=== PATIENT | male | born 1990 | race Caucasian/White ===

== ENCOUNTER 2017-10-15 13:54 | Inpatient (IN) | payer OTHER ==
[~2017-10-15] VITALS: Ht 175.2 cm; Wt 56.0 kg
[2017-10-15 15:13] VITALS: BP 132/77
[2017-10-15 15:52] LABS: BILIRUBIN NEGATIVE (NEGATIVE); BLOOD NEGATIVE (NEGATIVE); CLARITY CLEAR (CLEAR); COLOR YELLOW (YELLOW); GLUCOSE NEGATIVE (NEGATIVE); KETONE TRACE (NEGATIVE); LEUKO ESTERASE NEGATIVE (NEGATIVE); NITRITE NEGATIVE (NEGATIVE); PH 5.5 (5.0-9.0); SPECIFIC GRAVITY 1.025 (1.005-1.030); UROBILINOGEN 0.2 E.U./dl (0.2-1.0)
[2017-10-15 15:59] LABS: BACTERIA 1+; EPITHELIAL CELLS 0-2; MUCOUS TRACE; RBC 0-2 rbc/hpf (0-2); WBC 0-2 wbc/hpf (0-5)
[2017-10-15 16:00] VITALS: BP 120/72
[2017-10-15 16:01] LABS: URINE AMPHETAMINES < 1000 (1000ng/ml); URINE BARBITURATES < 200 (200ng/ml); URINE BENZODIAZEPINES < 200 (200ng/ml); URINE CANNABINOIDS (THC) > 50 (50ng/ml); URINE COCAINE < 300 (300ng/ml); URINE METHADONE < 300 (300ng/ml); URINE OPIATES < 300 (300ng/ml)
[2017-10-15 16:02] LABS: BASO % 0.4 % (0.0-1.0); EOS % 0.3 % (1.0-4.0); HEMATOCRIT 45.9 % (42.0-52.0); HEMOGLOBIN 16.2 g/dl (14.0-18.0); LYMPH % 15.1 % (27.0-41.0); MEAN CELL VOLUME 86.6 fl (80.0-94.0); MEAN CORPUSCULAR HGB 30.6 pg (27.0-31.0); MEAN CORPUSCULAR HGB CONC 35.3 g/dl (33.0-37.0); MEAN PLATELET VOLUME 8.5 fl (9.6-12.3); MONO # 0.3 10*3/uL (0.1-1.0); MONO % 3.7 % (3.0-9.0); NEUT # 5.4 10*3/uL (2.3-7.9); NEUT % 80.2 % (47.0-73.0); PLATELET COUNT AUTOMATED 252 10*3/uL (130-400); RED CELL DISTRI WIDTH 12.6 % (0-14.5); WHITE BLOOD COUNT 6.7 10*3/uL (4.8-10.8)
[2017-10-15 16:07] LABS: URINE PHENCYCLIDINE < 25 (25ng/ml)
[2017-10-15 16:19] LABS: ALBUMIN 4.8 gm/dl (3.1-4.5); ALKALINE PHOSPHATASE 90 U/L (45-117); BUN 14 mg/dl (7-24); CHLORIDE 102 mmol/L (98-107); CREATININE 0.89 mg/dL (0.70-1.30); POTASSIUM 4.4 mmol/L (3.5-5.1); SGOT/AST 17 IU/L (3-35); SGPT/ALT 17 U/L (12-78); SODIUM 138 mmol/L (136-145); TOTAL PROTEIN 8.9 gm/dL (6.4-8.2)
[2017-10-15 16:31] LABS: ETHYL ALCOHOL < 3.0 mg/dl (<3)
[2017-10-15 20:18] VITALS: BP 106/45
[2017-10-16 00:41] VITALS: BP 107/57
[2017-10-16 08:00] VITALS: BP 115/56
[2017-10-16 12:00] VITALS: BP 98/54
[2017-10-16 16:00] VITALS: BP 110/57
[2017-10-16 20:00] VITALS: BP 97/49
[2017-10-17 04:00] VITALS: BP 98/50
[2017-10-17 08:00] VITALS: BP 108/63
[2017-10-17 16:00] VITALS: BP 99/54
[2017-10-17 20:00] VITALS: BP 111/60
[2017-10-18] VITALS: BP 105/60
[2017-10-18 06:42] LABS: BASO # 0.1 10*3/uL (0.0-0.1); EOS # 0.2 10*3/uL (0.0-0.4); HEMATOCRIT 46.5 % (42.0-52.0); HEMOGLOBIN 15.9 g/dl (14.0-18.0); LYMPH # 2.3 10*3/uL (1.3-4.4); LYMPH % 47.3 % (27.0-41.0); MEAN CELL VOLUME 87.4 fl (80.0-94.0); MEAN CORPUSCULAR HGB 29.9 pg (27.0-31.0); MEAN CORPUSCULAR HGB CONC 34.2 g/dl (33.0-37.0); MONO # 0.3 10*3/uL (0.1-1.0); MONO % 5.1 % (3.0-9.0); NEUT # 2.1 10*3/uL (2.3-7.9); NEUT % 42.6 % (47.0-73.0); PLATELET COUNT AUTOMATED 192 10*3/uL (130-400); RED BLOOD COUNT 5.32 10*6/uL (4.50-5.90); RED CELL DISTRI WIDTH 12.5 % (0-14.5)
[2017-10-18 08:00] VITALS: BP 120/69
== END 2017-10-18 09:18 | disposition home or self-care (01) | DRG 895 ==
LOC: 5E 13:54
PROVIDERS: Internal Medicine; Registered Nurse
PROC: HZ34ZZZ Individual Counseling for Substance Abuse Treatment, Interpersonal (ICD-10-PCS; principal; 2017-10-15)
DX: F11.23 Opioid dependence with withdrawal (principal); B19.20 Unspecified viral hepatitis C without hepatic coma; F41.9 Anxiety disorder, unspecified; F32.9 Major depressive disorder, single episode, unspecified; F12.90 Cannabis use, unspecified, uncomplicated; Z72.0 Tobacco use; Z71.6 Tobacco abuse counseling

== ENCOUNTER 2018-05-04 07:55 | Inpatient (IN) | payer OTHER ==
[2018-05-04] VITALS (15 sets, daily range): BP systolic 87–119; BP diastolic 53–80
[~2018-05-04] VITALS: Ht 175.2 cm; Wt 54.0 kg
--- NOTE | ~2018-05-04 | EKG ---
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
[2018-05-04] MEDS ORDERED: BUPRENORPHIN NALOXON (08:08)
[2018-05-04 08:57] LABS: BASO % 0.5 % (0.0-1.0); EOS # 0.1 10*3/uL (0.0-0.4); HEMATOCRIT 34.1 % (42.0-52.0); HEMOGLOBIN 12.4 g/dl (14.0-18.0); LYMPH # 1.5 10*3/uL (1.3-4.4); LYMPH % 26.3 % (27.0-41.0); MEAN CELL VOLUME 84.2 fl (80.0-94.0); MEAN CORPUSCULAR HGB 30.6 pg (27.0-31.0); MEAN CORPUSCULAR HGB CONC 36.4 g/dl (33.0-37.0); MEAN PLATELET VOLUME 9.3 fl (9.6-12.3); MONO # 0.4 10*3/uL (0.1-1.0); MONO % 7.5 % (3.0-9.0); NEUT # 3.6 10*3/uL (2.3-7.9); NEUT % 63.3 % (47.0-73.0); PLATELET COUNT AUTOMATED 185 10*3/uL (130-400); RED BLOOD COUNT 4.05 10*6/uL (4.50-5.90); RED CELL DISTRI WIDTH 11.8 % (0-14.5); WHITE BLOOD COUNT 5.6 10*3/uL (4.8-10.8)
[2018-05-04 09:06] LABS: ACT PARTIAL THROMBO TIME 18.4 SECONDS (20.8-31.5); INTERNATIONAL NORM RATIO 1.1 (2.0-3.5)
[2018-05-04 09:12] LABS: ALBUMIN 3.4 gm/dl (3.1-4.5); ALKALINE PHOSPHATASE 52 U/L (45-117); BUN 13 mg/dl (7-24); CHLORIDE 109 mmol/L (98-107); CREATININE 0.95 mg/dL (0.70-1.30); LIPASE 318 U/L (73-393); SGOT/AST 13 IU/L (3-35); SGPT/ALT 15 U/L (12-78); SODIUM 141 mmol/L (136-145); TOTAL PROTEIN 6.2 gm/dL (6.4-8.2)
[2018-05-04 09:13] LABS: ETHYL ALCOHOL < 3.0 mg/dl (<3); TROPONIN I < 0.015 ng/ml (<0.045)
[2018-05-05] VITALS: BP 104/60
[2018-05-05 04:00] VITALS: BP 104/70
[2018-05-05 06:53] LABS: BILIRUBIN NEGATIVE (NEGATIVE); BLOOD NEGATIVE (NEGATIVE); CLARITY SL CLOUDY (CLEAR); COLOR YELLOW (YELLOW); GLUCOSE NEGATIVE (NEGATIVE); KETONE NEGATIVE (NEGATIVE); LEUKO ESTERASE NEGATIVE (NEGATIVE); NITRITE NEGATIVE (NEGATIVE); SPECIFIC GRAVITY >= 1.030 (1.005-1.030)
[2018-05-05 07:00] LABS: URINE AMPHETAMINES > 1000 (1000ng/ml); URINE BARBITURATES < 200 (200ng/ml); URINE BENZODIAZEPINES < 200 (200ng/ml); URINE CANNABINOIDS (THC) < 50 (50ng/ml); URINE COCAINE < 300 (300ng/ml); URINE METHADONE < 300 (300ng/ml); URINE OPIATES < 300 (300ng/ml)
[2018-05-05 07:07] LABS: BUN 17 mg/dl (7-24); CHLORIDE 104 mmol/L (98-107); CHOLESTEROL 89 mg/dL (<200); CREATININE 0.78 mg/dL (0.70-1.30); FREE T4 1.59 ng/dl (0.76-1.46); HDL CHOLESTEROL 39 mg/dl (40-60); LDL CHOLESTEROL 32 mg/dL (9-159); POTASSIUM 3.7 mmol/L (3.5-5.1); SODIUM 140 mmol/L (136-145); TRIGLYCERIDES 91 mg/dl (<150); VLDL CHOLESTEROL 18 mg/dL (6-40)
[2018-05-05 07:07] LABS: URINE PHENCYCLIDINE < 25 (25ng/ml)
[2018-05-05 07:14] LABS: THYROID STIM HORMONE (HS) 0.714 uIU/ml (0.358-4.75)
[2018-05-05 07:15] LABS: BACTERIA TRACE; MUCOUS 2+; WBC 0-2 wbc/hpf (0-5)
[2018-05-05 08:00] VITALS: BP 107/62
[2018-05-05 08:07] LABS: VITAMIN D, 25-HYDROXY 30.8 ng/mL (30-100)
[2018-05-05 12:00] VITALS: BP 98/50
[2018-05-05 16:00] VITALS: BP 106/61
[2018-05-05 20:00] VITALS: BP 110/60
[2018-05-06] VITALS: BP 101/46
[2018-05-06 08:00] VITALS: BP 98/50
== END 2018-05-06 12:30 | disposition home or self-care (01) | DRG 918 ==
LOC: ED 07:55 → EDHOLD 16:55 → 4E 17:20
PROVIDERS: Emergency Medicine; Internal Medicine
DX: T43.621A Poisoning by amphetamines, accidental (unintentional), initial encounter (principal); F11.20 Opioid dependence, uncomplicated; E87.2 Acidosis; F15.10 Other stimulant abuse, uncomplicated; E87.6 Hypokalemia; E87.8 Other disorders of electrolyte and fluid balance, not elsewhere classified; D64.9 Anemia, unspecified; B19.20 Unspecified viral hepatitis C without hepatic coma; I95.2 Hypotension due to drugs; F41.9 Anxiety disorder, unspecified; F32.9 Major depressive disorder, single episode, unspecified; F19.90 Other psychoactive substance use, unspecified, uncomplicated; R00.0 Tachycardia, unspecified; Z71.6 Tobacco abuse counseling; Z78.9 Other specified health status; Z72.0 Tobacco use; Y92.89 Other specified places as the place of occurrence of the external cause; Z80.9 Family history of malignant neoplasm, unspecified

== ENCOUNTER 2018-05-12 15:39 | Emergency (ER) | payer OTHER ==
[~2018-05-12] VITALS: Wt 65.8 kg
--- NOTE | ~2018-05-12 | EKG ---
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 : 1990 Requested By: MARIA ELENA LOCKWOOD PA-C Order Number: [id number] Reading MD: Paul Naranjo MD Measurements Intervals [place] Rate: 125 P: 74 [place]: 148 QRS: 62 QRSD: 94 T: 45 QT: 321 QTc: 463 Interpretive Statements Sinus tachycardia RSR' in V1 or V2, right VCD or RVH Borderline T abnormalities, inferior leads Artifact in lead(s) I,III,aVR,aVL,aVF,V6 Compared to ECG 05/04/2018 07:59:31 Right ventricular hypertrophy now present RSR' in V1 or V2 now present T-wave abnormality now present Sinus rhythm no longer present Electronically Signed On 05-13-2018 8:43:40 PDT by Paul Naranjo MD CM:EKGRPT:ELECTROCARDIOGRAM REPORT [id number] MARIA ELENA LOCKWOOD PA-C EPIPHANY DRAFT REPORT MARIA ELENA LOCKWOOD PA-C
[~2018-05-12 15:39] MED LIST: BUPRENORPHIN NALOXON
[2018-05-12] MEDS ORDERED: ZITHROMAX250 MG PO (15:49)
[2018-05-12] MEDS ORDERED: PROAIR HFA8.5 GM INH (15:49)
[2018-05-12] MEDS ORDERED: PREDNISONE20 M1 PO (15:49)
[2018-05-12 18:23] LABS: HEMATOCRIT 35.2 % (42.0-52.0); HEMOGLOBIN 12.7 g/dl (14.0-18.0); MEAN CELL VOLUME 85.2 fl (80.0-94.0); MEAN CORPUSCULAR HGB 30.8 pg (27.0-31.0); MEAN CORPUSCULAR HGB CONC 36.1 g/dl (33.0-37.0); MEAN PLATELET VOLUME 9.1 fl (9.6-12.3); RED BLOOD COUNT 4.13 10*6/uL (4.50-5.90); RED CELL DISTRI WIDTH 11.7 % (0-14.5)
[2018-05-12 18:28] LABS: WHITE BLOOD COUNT 1.2 10*3/uL (4.8-10.8)
[2018-05-12 18:29] LABS: PLATELET COUNT AUTOMATED 5 10*3/uL (130-400)
[2018-05-12 18:34] LABS: ACT PARTIAL THROMBO TIME 19.8 SECONDS (20.8-31.5); INTERNATIONAL NORM RATIO 1.2 (2.0-3.5)
[2018-05-12 18:45] LABS: TOTAL CELLS COUNTED 100 #CELLS
[2018-05-12 18:46] LABS: BURR CELLS FEW; PLATELET SUFFICIENCY LOW (NORMAL)
[2018-05-12 18:48] LABS: ALBUMIN 3.2 gm/dl (3.1-4.5); ALKALINE PHOSPHATASE 61 U/L (45-117); BUN 17 mg/dl (7-24); CHLORIDE 104 mmol/L (98-107); CREATININE 0.85 mg/dL (0.70-1.30); POTASSIUM 3.8 mmol/L (3.5-5.1); SGOT/AST 27 IU/L (3-35); SGPT/ALT 16 U/L (12-78); SODIUM 136 mmol/L (136-145); TOTAL PROTEIN 5.8 gm/dL (6.4-8.2)
[2018-05-12 18:49] LABS: LIPASE 51 U/L (73-393)
[2018-05-12 22:45] LABS: BILIRUBIN NEGATIVE (NEGATIVE); BLOOD NEGATIVE (NEGATIVE); CLARITY CLEAR (CLEAR); COLOR YELLOW (YELLOW); GLUCOSE NEGATIVE (NEGATIVE); KETONE NEGATIVE (NEGATIVE); LEUKO ESTERASE NEGATIVE (NEGATIVE); NITRITE NEGATIVE (NEGATIVE); PH 6.5 (5.0-9.0); SPECIFIC GRAVITY <= 1.005 (1.005-1.030); UROBILINOGEN 0.2 E.U./dl (0.2-1.0)
[2018-05-12 22:50] LABS: WBC 0-2 wbc/hpf (0-5)
[2018-05-12 22:54] LABS: URINE AMPHETAMINES > 1000 (1000ng/ml); URINE BARBITURATES < 200 (200ng/ml); URINE BENZODIAZEPINES < 200 (200ng/ml); URINE CANNABINOIDS (THC) < 50 (50ng/ml); URINE COCAINE < 300 (300ng/ml); URINE METHADONE < 300 (300ng/ml); URINE OPIATES < 300 (300ng/ml)
[2018-05-12 22:57] LABS: URINE PHENCYCLIDINE < 25 (25ng/ml)
[2018-05-13 01:39] LABS: URINE BLOOD,POST TRANSFUSION NEGATIVE (NEGATIVE)
[2018-05-13 01:40] LABS: URINE RBC,POST TRANSFUSION 0 rbc/hpf (0-2)
== END 2018-05-13 02:18 | disposition short-term general hospital (02) ==
LOC: ED 15:39
PROVIDERS: Physician Assistant
DX: A41.9 Sepsis, unspecified organism (principal); M54.5 Low back pain; R50.9 Fever, unspecified; D61.818 Other pancytopenia; F11.10 Opioid abuse, uncomplicated; F19.10 Other psychoactive substance abuse, uncomplicated; Z87.891 Personal history of nicotine dependence

== ENCOUNTER → 2018-09-18 | Outpatient (CLI) | payer OTHER ==
[~2018-09-18] MED LIST changes: +PREDNISONE20 M1 PO; +PROAIR HFA8.5 GM INH; +ZITHROMAX250 MG PO
[2018-09-18 11:35] LABS: ALBUMIN 4.4 gm/dl (3.1-4.5); ALKALINE PHOSPHATASE 72 U/L (45-117); BUN 15 mg/dl (7-24); CHLORIDE 109 mmol/L (98-107); CREATININE 0.94 mg/dL (0.70-1.30); POTASSIUM 3.8 mmol/L (3.5-5.1); SGOT/AST 9 IU/L (3-35); SGPT/ALT 13 U/L (12-78); SODIUM 139 mmol/L (136-145); TOTAL PROTEIN 8.2 gm/dL (6.4-8.2)
[2018-09-18 11:37] LABS: BILIRUBIN, DIRECT 0.2 mg/dL (0.0-0.2)
[2018-09-19 07:07] LABS: HEPATITIS B SURFACE AG Negative (Negative)
[2018-09-23 10:22] LABS: HEPATITIS C VIRUS ANTIBODY >11.0 s/co (0.0-0.9)
== END | disposition home or self-care (01) ==
LOC: LAB 10:26
PROVIDERS: Anesthesiology Addiction Medicine
DX: F11.20 Opioid dependence, uncomplicated (principal)

== ENCOUNTER 2018-12-20 14:24 | Inpatient (IN) | payer OTHER ==
[~2018-12-20] VITALS: Ht 170.1 cm; Wt 59.1 kg
[2018-12-20 16:00] VITALS: BP 130/71
[2018-12-20 16:51] LABS: BILIRUBIN NEGATIVE (NEGATIVE); BLOOD NEGATIVE (NEGATIVE); CLARITY CLEAR (CLEAR); COLOR YELLOW (YELLOW); GLUCOSE NEGATIVE (NEGATIVE); KETONE NEGATIVE (NEGATIVE); LEUKO ESTERASE NEGATIVE (NEGATIVE); NITRITE NEGATIVE (NEGATIVE); SPECIFIC GRAVITY 1.015 (1.005-1.030); UROBILINOGEN 0.2 E.U./dl (0.2-1.0)
[2018-12-20 16:59] LABS: BACTERIA 1+; EPITHELIAL CELLS 0-2; URINE AMPHETAMINES < 1000 (1000ng/ml); URINE BARBITURATES < 200 (200ng/ml); URINE BENZODIAZEPINES < 200 (200ng/ml); URINE CANNABINOIDS (THC) > 50 (50ng/ml); URINE COCAINE < 300 (300ng/ml); URINE METHADONE < 300 (300ng/ml); URINE OPIATES < 300 (300ng/ml)
[2018-12-20 17:00] LABS: URINE PHENCYCLIDINE < 25 (25ng/ml)
[2018-12-20 17:15] LABS: BASO # 0.1 10*3/uL (0.0-0.1); BASO % 0.7 % (0.0-1.0); EOS # 0.1 10*3/uL (0.0-0.4); EOS % 1.4 % (1.0-4.0); HEMATOCRIT 43.2 % (42.0-52.0); HEMOGLOBIN 14.9 g/dl (14.0-18.0); LYMPH # 1.4 10*3/uL (1.3-4.4); LYMPH % 18.9 % (27.0-41.0); MEAN CELL VOLUME 90.9 fl (80.0-94.0); MEAN CORPUSCULAR HGB 31.4 pg (27.0-31.0); MEAN CORPUSCULAR HGB CONC 34.5 g/dl (33.0-37.0); MEAN PLATELET VOLUME 8.9 fl (9.6-12.3); MONO # 0.3 10*3/uL (0.1-1.0); MONO % 4.6 % (3.0-9.0); NEUT # 5.3 10*3/uL (2.3-7.9); PLATELET COUNT AUTOMATED 253 10*3/uL (130-400); RED BLOOD COUNT 4.75 10*6/uL (4.50-5.90); RED CELL DISTRI WIDTH 12.4 % (0-14.5); WHITE BLOOD COUNT 7.1 10*3/uL (4.8-10.8)
[2018-12-20 17:22] LABS: INTERNATIONAL NORM RATIO 0.9 (2.0-3.5)
[2018-12-20 17:29] LABS: ALBUMIN 4.1 gm/dl (3.1-4.5); ALKALINE PHOSPHATASE 81 U/L (45-117); BUN 9 mg/dl (7-24); CHLORIDE 106 mmol/L (98-107); CREATININE 0.69 mg/dL (0.70-1.30); POTASSIUM 3.9 mmol/L (3.5-5.1); SGOT/AST 17 IU/L (3-35); SGPT/ALT 25 U/L (12-78); SODIUM 139 mmol/L (136-145); TOTAL PROTEIN 7.9 gm/dL (6.4-8.2)
[2018-12-20 17:40] LABS: ETHYL ALCOHOL < 3.0 mg/dl (<3)
[2018-12-20 20:00] VITALS: BP 118/61
[2018-12-21] VITALS: BP 117/60
[2018-12-21 04:00] VITALS: BP 120/73
[2018-12-21 08:00] VITALS: BP 114/58
[2018-12-21 12:00] VITALS: BP 129/57
[2018-12-21 16:00] VITALS: BP 119/53
[2018-12-21 20:00] VITALS: BP 154/69
[2018-12-22] VITALS: BP 125/49
[2018-12-22 08:00] VITALS: BP 98/53
[2018-12-22 12:00] VITALS: BP 121/49
[2018-12-22 16:00] VITALS: BP 107/51
[2018-12-22 20:00] VITALS: BP 104/48
[2018-12-23] VITALS: BP 134/53
[2018-12-23 08:00] VITALS: BP 111/56
== END 2018-12-23 10:10 | disposition home or self-care (01) | DRG 897 ==
LOC: 4E 14:24
PROVIDERS: Registered Nurse; ADMIT Internal Medicine
DX: F11.23 Opioid dependence with withdrawal (principal); F41.9 Anxiety disorder, unspecified; F32.9 Major depressive disorder, single episode, unspecified; F17.210 Nicotine dependence, cigarettes, uncomplicated; B19.20 Unspecified viral hepatitis C without hepatic coma; F19.90 Other psychoactive substance use, unspecified, uncomplicated; F12.90 Cannabis use, unspecified, uncomplicated; Z80.8 Family history of malignant neoplasm of other organs or systems; Z71.6 Tobacco abuse counseling

== ENCOUNTER 2019-03-20 15:19 | Emergency (ER) | payer OTHER ==
[~2019-03-20] VITALS: Ht 175.2 cm; Wt 63.5 kg
[2019-03-20 16:19] LABS: BASO # 0.1 10*3/uL (0.0-0.1); BASO % 1.4 % (0.0-1.0); EOS # 1.3 10*3/uL (0.0-0.4); EOS % 19.7 % (1.0-4.0); HEMATOCRIT 39.3 % (42.0-52.0); HEMOGLOBIN 13.8 g/dl (14.0-18.0); LYMPH # 1.5 10*3/uL (1.3-4.4); LYMPH % 23.5 % (27.0-41.0); MEAN CELL VOLUME 87.9 fl (80.0-94.0); MEAN CORPUSCULAR HGB 30.9 pg (27.0-31.0); MEAN CORPUSCULAR HGB CONC 35.1 g/dl (33.0-37.0); MEAN PLATELET VOLUME 8.9 fl (9.6-12.3); MONO # 0.4 10*3/uL (0.1-1.0); MONO % 6.7 % (3.0-9.0); NEUT # 3.2 10*3/uL (2.3-7.9); NEUT % 48.5 % (47.0-73.0); PLATELET COUNT AUTOMATED 197 10*3/uL (130-400); RED BLOOD COUNT 4.47 10*6/uL (4.50-5.90); RED CELL DISTRI WIDTH 11.4 % (0-14.5); WHITE BLOOD COUNT 6.6 10*3/uL (4.8-10.8)
[2019-03-20 16:28] LABS: ALBUMIN 3.9 gm/dl (3.1-4.5); ALKALINE PHOSPHATASE 84 U/L (45-117); BUN 11 mg/dl (7-24); CHLORIDE 106 mmol/L (98-107); CREATININE 0.85 mg/dL (0.70-1.30); POTASSIUM 4.1 mmol/L (3.5-5.1); SGOT/AST 17 IU/L (3-35); SGPT/ALT 22 U/L (12-78); SODIUM 136 mmol/L (136-145); TOTAL PROTEIN 8.3 gm/dL (6.4-8.2)
[2019-03-20 17:24] LABS: BILIRUBIN NEGATIVE (NEGATIVE); BLOOD NEGATIVE (NEGATIVE); CLARITY CLEAR (CLEAR); COLOR YELLOW (YELLOW); GLUCOSE NEGATIVE (NEGATIVE); KETONE NEGATIVE (NEGATIVE); LEUKO ESTERASE NEGATIVE (NEGATIVE); NITRITE NEGATIVE (NEGATIVE); SPECIFIC GRAVITY 1.015 (1.005-1.030)
[2019-03-20 17:37] LABS: MUCOUS TRACE
[2019-03-20] MEDS ORDERED: CORTISPORIN SUS10 ML OT (17:45)
== END 2019-03-20 17:53 | disposition home or self-care (01) ==
LOC: ED 15:19
PROVIDERS: Nurse Practitioner Family
DX: T16.2XXA Foreign body in left ear, initial encounter (principal); B34.9 Viral infection, unspecified; F17.200 Nicotine dependence, unspecified, uncomplicated; F11.10 Opioid abuse, uncomplicated; F12.90 Cannabis use, unspecified, uncomplicated; Z86.19 Personal history of other infectious and parasitic diseases; X58.XXXA Exposure to other specified factors, initial encounter; Y93.89 Activity, other specified; Y92.89 Other specified places as the place of occurrence of the external cause; Y99.8 Other external cause status

== ENCOUNTER 2019-05-07 23:07 | Emergency (ER) | payer OTHER ==
[~2019-05-07] VITALS: Ht 175.2 cm; Wt 65.8 kg
[~2019-05-07 23:07] MED LIST changes: +CORTISPORIN SUS10 ML OT
== END 2019-05-08 02:03 | disposition left against medical advice (07) ==
LOC: ED 23:07
DX: F41.9 Anxiety disorder, unspecified (principal); F11.90 Opioid use, unspecified, uncomplicated; F32.9 Major depressive disorder, single episode, unspecified; F15.90 Other stimulant use, unspecified, uncomplicated; F12.90 Cannabis use, unspecified, uncomplicated; F17.210 Nicotine dependence, cigarettes, uncomplicated

== ENCOUNTER 2020-04-22 03:07 | Emergency (ER) | payer OTHER ==
[~2020-04-22] VITALS: Ht 175.2 cm; Wt 61.2 kg
[2020-04-22 03:56] LABS: URINE AMPHETAMINES < 1000 (1000ng/ml); URINE BARBITURATES < 200 (200ng/ml); URINE BENZODIAZEPINES < 200 (200ng/ml); URINE CANNABINOIDS (THC) < 50 (50ng/ml); URINE COCAINE > 300 (300ng/ml); URINE METHADONE < 300 (300ng/ml); URINE OPIATES < 300 (300ng/ml)
[2020-04-22 03:57] LABS: URINE PHENCYCLIDINE < 25 (25ng/ml)
[2020-04-22 04:07] LABS: BASO % 0.5 % (0.0-1.0); EOS % 0.6 % (1.0-4.0); HEMATOCRIT 43.4 % (42.0-52.0); LYMPH # 0.8 10*3/uL (1.3-4.4); LYMPH % 12.7 % (27.0-41.0); MEAN CELL VOLUME 91.4 fl (80.0-94.0); MEAN CORPUSCULAR HGB 30.3 pg (27.0-31.0); MEAN CORPUSCULAR HGB CONC 33.2 g/dl (33.0-37.0); MEAN PLATELET VOLUME 8.5 fl (9.6-12.3); MONO # 0.3 10*3/uL (0.1-1.0); MONO % 4.5 % (3.0-9.0); NEUT # 5.4 10*3/uL (2.3-7.9); NEUT % 81.4 % (47.0-73.0); PLATELET COUNT AUTOMATED 257 10*3/uL (130-400); RED BLOOD COUNT 4.75 10*6/uL (4.50-5.90); RED CELL DISTRI WIDTH 12.7 % (0-14.5); WHITE BLOOD COUNT 6.6 10*3/uL (4.8-10.8)
[2020-04-22 04:21] LABS: ALBUMIN 3.5 gm/dl (3.1-4.5); ALKALINE PHOSPHATASE 115 U/L (45-117); BUN 9 mg/dl (7-24); CHLORIDE 108 mmol/L (98-107); CREATININE 0.79 mg/dL (0.70-1.30); POTASSIUM 4.1 mmol/L (3.5-5.1); SGOT/AST 19 IU/L (3-35); SGPT/ALT 85 U/L (12-78); SODIUM 139 mmol/L (136-145); TOTAL PROTEIN 8.4 gm/dL (6.4-8.2)
== END 2020-04-22 04:49 | disposition left against medical advice (07) ==
LOC: ED 03:07
PROVIDERS: Emergency Medicine
DX: F19.10 Other psychoactive substance abuse, uncomplicated (principal); F14.10 Cocaine abuse, uncomplicated; F17.210 Nicotine dependence, cigarettes, uncomplicated

== ENCOUNTER 2020-06-15 14:24 | Inpatient (IN) | payer OTHER ==
[~2020-06-15] VITALS: Ht 175.2 cm; Wt 63.5 kg
[2020-06-15 15:59] LABS: BILIRUBIN Negative (Negative); BLOOD Trace-Intact (Negative); CLARITY Clear (Clear); COLOR Yellow (Yellow); GLUCOSE Negative (Negative); KETONE Negative (Negative); LEUKO ESTERASE Negative (Negative); NITRITE Negative (Negative); UROBILINOGEN 0.2 E.U./dl (0.0-1.0)
[2020-06-15 16:00] VITALS: BP 119/69
[2020-06-15 16:14] LABS: BACTERIA TRACE; EPITHELIAL CELLS 0-2; RBC 16-20 rbc/hpf (0-2); WBC 0-2 wbc/hpf (0-5)
[2020-06-15 17:07] LABS: BASO % 0.9 % (0.0-1.0); EOS # 0.1 10*3/uL (0.0-0.4); EOS % 2.5 % (1.0-4.0); HEMATOCRIT 40.6 % (42.0-52.0); LYMPH % 22.4 % (27.0-41.0); MEAN CELL VOLUME 89.6 fl (80.0-94.0); MEAN CORPUSCULAR HGB CONC 33.5 g/dl (33.0-37.0); MEAN PLATELET VOLUME 8.8 fl (9.6-12.3); MONO # 0.2 10*3/uL (0.1-1.0); MONO % 5.5 % (3.0-9.0); NEUT % 68.5 % (47.0-73.0); PLATELET COUNT AUTOMATED 238 10*3/uL (130-400); RED BLOOD COUNT 4.53 10*6/uL (4.50-5.90); RED CELL DISTRI WIDTH 12.1 % (0-14.5); WHITE BLOOD COUNT 4.3 10*3/uL (4.8-10.8)
[2020-06-15 17:17] LABS: INTERNATIONAL NORM RATIO 0.9 (2.0-3.5)
[2020-06-15 17:23] LABS: ALBUMIN 3.9 gm/dl (3.1-4.5); ALKALINE PHOSPHATASE 68 U/L (45-117); BUN 7 mg/dl (7-24); CHLORIDE 111 mmol/L (98-107); CREATININE 0.63 mg/dL (0.70-1.30); LIPASE 51 U/L (73-393); POTASSIUM 3.5 mmol/L (3.5-5.1); SGOT/AST 24 IU/L (3-35); SGPT/ALT 41 U/L (12-78); SODIUM 142 mmol/L (136-145); TOTAL PROTEIN 7.7 gm/dL (6.4-8.2)
[2020-06-15 17:24] LABS: ETHYL ALCOHOL < 3.0 mg/dl (<3)
[2020-06-15 20:00] VITALS: BP 129/61
[2020-06-16] VITALS: BP 134/67
[2020-06-16 08:00] VITALS: BP 129/65
[2020-06-16 12:00] VITALS: BP 133/69
[2020-06-16 16:08] VITALS: BP 117/69
[2020-06-16 20:00] VITALS: BP 116/70
[2020-06-17] VITALS: BP 126/74
[2020-06-17 08:00] VITALS: BP 109/63
[2020-06-17 12:00] VITALS: BP 121/66
== END 2020-06-17 13:58 | disposition left against medical advice (07) | DRG 770 ==
LOC: 5E 14:24
PROVIDERS: Hospitalist; ADMIT Internal Medicine; ATTEND Internal Medicine
DX: F11.13 Opioid abuse with withdrawal (principal); F41.9 Anxiety disorder, unspecified; F32.9 Major depressive disorder, single episode, unspecified; R31.9 Hematuria, unspecified; Z53.29 Procedure and treatment not carried out because of patient's decision for other reasons; R65.10 Systemic inflammatory response syndrome (SIRS) of non-infectious origin without acute organ dysfunction; F17.210 Nicotine dependence, cigarettes, uncomplicated; B19.20 Unspecified viral hepatitis C without hepatic coma; Z80.8 Family history of malignant neoplasm of other organs or systems; Z71.6 Tobacco abuse counseling

== ENCOUNTER 2021-11-27 12:19 | Inpatient (IN) | payer OTHER ==
[~2021-11-27] VITALS: Ht 175.3 cm; Wt 53.6 kg
[2021-11-27 12:22] VITALS: BP 138/72
[2021-11-27 13:11] LABS: BASO % 0.1 % (0.0-1.0); HEMATOCRIT 44.2 % (42.0-52.0); LYMPH # 0.4 10*3/uL (1.3-4.4); LYMPH % 4.3 % (27.0-41.0); MEAN CELL VOLUME 92.1 fl (80.0-94.0); MEAN CORPUSCULAR HGB CONC 33.7 g/dl (33.0-37.0); MEAN PLATELET VOLUME 8.6 fl (9.6-12.3); NEUT % 83.4 % (47.0-73.0); PLATELET COUNT AUTOMATED 287 10*3/uL (130-400); RED CELL DISTRI WIDTH 12.5 % (0-14.5); WHITE BLOOD COUNT 8.4 10*3/uL (4.8-10.8)
[2021-11-27 13:26] LABS: ACT PARTIAL THROMBO TIME 26.8 SECONDS (20.0-32.1)
[2021-11-27 13:27] LABS: ALKALINE PHOSPHATASE 98 U/L (45-117); BUN 33 mg/dl (7-24); CHLORIDE 100 mmol/L (98-107); CREATININE 1.48 mg/dL (0.70-1.30); POTASSIUM 4.4 mmol/L (3.5-5.1); SGOT/AST 110 IU/L (3-35); SGPT/ALT 129 U/L (12-78); SODIUM 138 mmol/L (136-145); TOTAL PROTEIN 8.5 gm/dL (6.4-8.2)
[2021-11-27 13:33] LABS: BILIRUBIN Negative (Negative); BLOOD 1+ (Negative); CLARITY Clear (Clear); COLOR Yellow (Yellow); GLUCOSE Negative (Negative); KETONE Negative (Negative); LEUKO ESTERASE Negative (Negative); NITRITE Negative (Negative); SPECIFIC GRAVITY 1.025 (1.001-1.030)
[2021-11-27 13:35] LABS: THYROID STIM HORMONE (HS) 0.134 uIU/ml (0.358-4.75)
[2021-11-27 13:40] LABS: MUCOUS 1+
[2021-11-27 13:41] LABS: BACTERIA 2+
[2021-11-27 13:42] LABS: EPITHELIAL CELLS 0-2
[2021-11-27 13:42] LABS: ETHYL ALCOHOL < 3.0 mg/dl (<3)
[2021-11-27 13:45] LABS: ACETAMINOPHEN (TYLENOL) < 5.0 ug/ml (10-30)
[2021-11-27 13:48] LABS: URINE AMPHETAMINES > 1000 (1000ng/ml); URINE BARBITURATES < 200 (200ng/ml); URINE BENZODIAZEPINES < 200 (200ng/ml); URINE CANNABINOIDS (THC) > 50 (50ng/ml); URINE COCAINE > 300 (300ng/ml); URINE METHADONE < 300 (300ng/ml); URINE OPIATES < 300 (300ng/ml)
[2021-11-27 13:49] LABS: URINE PHENCYCLIDINE < 25 (25ng/ml)
[2021-11-27 14:28] VITALS: BP 95/48
[2021-11-27 16:19] VITALS: BP 97/53
[2021-11-27 16:53] VITALS: BP 109/80
[2021-11-27] MEDS ORDERED: ATIVAN1 MG PO (19:24)
[2021-11-27] MEDS ORDERED: CITALOPRAM40 MG PO (19:24)
[2021-11-27] MEDS ORDERED: NEURONTIN300 MG PO (19:24)
[2021-11-27 20:00] VITALS: BP 110/73
[2021-11-28 04:00] VITALS: BP 107/64
[2021-11-28 08:00] VITALS: BP 104/58
== END 2021-11-28 10:05 | disposition left against medical advice (07) | DRG 770 ==
LOC: ED 12:19 → EDHOLD 14:25 → ICCU 14:25
PROVIDERS: Emergency Medicine; ADMIT Internal Medicine; ATTEND Internal Medicine
DX: F14.929 Cocaine use, unspecified with intoxication, unspecified (principal); F15.10 Other stimulant abuse, uncomplicated; R09.02 Hypoxemia; R77.8 Other specified abnormalities of plasma proteins; R79.89 Other specified abnormal findings of blood chemistry; B19.10 Unspecified viral hepatitis B without hepatic coma; F11.10 Opioid abuse, uncomplicated; F41.9 Anxiety disorder, unspecified; F32.9 Major depressive disorder, single episode, unspecified; F19.90 Other psychoactive substance use, unspecified, uncomplicated; F20.9 Schizophrenia, unspecified; Z87.891 Personal history of nicotine dependence; Z79.82 Long term (current) use of aspirin

== ENCOUNTER 2022-01-21 23:14 | Emergency (ER) | payer OTHER ==
[~2022-01-21 23:14] MED LIST changes: +ATIVAN1 MG PO; +CITALOPRAM40 MG PO; +NEURONTIN300 MG PO
== END 2022-01-21 23:58 | disposition left against medical advice (07) ==
LOC: ED 23:14
DX: T50.901A Poisoning by unspecified drugs, medicaments and biological substances, accidental (unintentional), initial encounter (principal); Y92.89 Other specified places as the place of occurrence of the external cause; Z79.899 Other long term (current) drug therapy

== ENCOUNTER 2022-05-22 22:01 | Emergency (ER) | payer OTHER ==
[~2022-05-22] VITALS: Ht 177.8 cm; Wt 59.0 kg
== END 2022-05-23 00:03 | disposition home or self-care (01) ==
LOC: ED 22:01
DX: T40.2X1A Poisoning by other opioids, accidental (unintentional), initial encounter (principal); Z79.899 Other long term (current) drug therapy; Y92.89 Other specified places as the place of occurrence of the external cause